=== PATIENT | male | born 1955 | race Caucasian/White ===

== ENCOUNTER 2025-06-01 20:42 | Emergency (ER) | payer MEDICARE, OTHER, SELFPAY ==
[2025-06-01 20:44] VITALS: BP 120/93
[2025-06-01 21:02] VITALS: BP 132/78
[2025-06-01 21:14] VITALS: BMI 26.8
[2025-06-01 21:33] LABS: Hematocrit 47.6 % (39.0-52.0); Hemoglobin 16.4 g/dL (13.0-18.0); Mean Corp Hgb Conc. 34.5 g/dL (33.0-37.0); Mean Corpuscular Volume 89.6 fL (80.0-94.0); Nucleated Red Blood Cells % 0 % (-); Platelet Count 267 10^3/uL (130-400); Red Cell Dist. Width 12.9 % (11.5-14.5)
[2025-06-01 21:46] LABS: COVID-19 Antigen Negative (Negative)
[2025-06-01 21:48] LABS: ALT (SGPT) 21 U/L (0-50); AST (SGOT) 21 U/L (17-59); Albumin 5.1 g/dl (3.5-5.0); Alkaline Phosphatase 91 U/L (38-126); Blood Urea Nitrogen 39 mg/dl (9-20); Calcium 10.1 mg/dl (8.4-10.2); Carbon Dioxide 24 mmol/L (22-30); Chloride 108 mmol/L (98-107); Estimated Creatinine Clearance 48 ml/min; Glucose 149 mg/dl (70-99); Potassium 4.5 mmol/L (3.5-5.1); Sodium 142 mmol/L (135-145); Total Protein 8.4 g/dl (6.3-8.2); eGFR 49.47
[2025-06-01] MEDS: ZOFRAN 4 MG IV (22:41)
[2025-06-01] MEDS: NSS 1000 IV (22:42)
--- NOTE | 2025-06-01 23:17 | ED.GENMED ---
History of Present Illness
General
Chief Complaint: Abdominal Symptoms
Time Seen by Provider: 06/01/25 21:07
History of Present Illness
History of Present Illness:
69-year-old male with history of A-fib presents to the emergency department for evaluation of loose/watery diarrhea for the past 3 days. Reports fatigue and weakness as well as vomiting today that prompted him to come to the emergency department.
He denies fevers or chills, denies abdominal pain. Denies any recent suspicious food intake. No ill contacts at home. No recent international travel. Denies any antibiotics in the past 90 days
Past History
Past History
ED Past Medical History: Arrthythmia (Atrial fib) and HTN
ED Past Surgical History: None
Social History
Tobacco: Non-smoker
Alcohol: Occasional
Drug: None
Personal: Other (Seperated)
Living: with family
Review of Systems
Review of Systems
Allergies reviewed?: Yes
All Other Systems: ROS reviewed and negative except as documented in HPI and ROS
Phy Exam
Physical Exam
Physical Exam:
GEN: Well appearing, NAD, WDWN
HEENT: Oral mucosa moist, no scleral icterus
Cardiac: Regular rate
Lung: No respiratory distress, no tachypnea
Abdomen: Soft, grossly nontender
MSK: No gross deformity or injuries
Skin: Good color, no pallor or jaundice, no rashes
Neuro: AO x3, moves all extremities freely
Psych: Calm, cooperative
Course
Orders/Labs/Results
Orders:
Orders
06/01/25 21:24
COVID-19 Antigen Urgent
Source: Nasal Swab
Complete Blood Count/With Diff Urgent
Comprehensive Metabolic Panel Urgent
Influenza A+B Rapid Molecular Urgent
ELIZABETH Source: Nasal Swab
Specimen Description:
06/01/25 22:13
0.9% Sodium Chloride 1000 ml [Nss] 1,000 ml IV BOLUS
Ondansetron Injectable [Zofran] 4 mg IV NOW STA
06/01/25 23:19
0.9% Sodium Chloride 500 ml [Nss] 500 ml IV BOLUS
Abnormal Lab Results
06/01/25
21:24
Absolute Monos (auto) 1.2 H 10^3/uL
(0.1-0.6)
Lymphocytes % 18.6 L %
(20.5-51.1)
Monocytes % 12.8 H %
(1.7-9.3)
Chloride 108 H mmol/L
(98-107)
BUN 39 H mg/dl
(9-20)
Creatinine 1.5 H mg/dL
(0.7-1.3)
Glucose 149 H mg/dl
(70-99)
Total Bilirubin 1.4 H mg/dl
(0.2-1.3)
Total Protein 8.4 H g/dl
(6.3-8.2)
Albumin 5.1 H g/dl
(3.5-5.0)
06/01/25 21:24
06/01/25 21:24
Vital Signs
Initial and Last Documented VS:
Initial Vital Signs
Temp Pulse Resp BP Pulse Ox
98.8 F 86 20 120/93 99
06/01/25 20:44 06/01/25 20:44 06/01/25 20:44 06/01/25 20:44 06/01/25 20:44
Last Documented Vital Signs
Temp Pulse Resp BP Pulse Ox
98.8 F 61 17 132/78 97
06/01/25 20:44 06/01/25 21:02 06/01/25 21:02 06/01/25 21:02 06/01/25 23:19
MDM/Problems Addressed
MDM/Problems Addressed:
Likely self-limited viral diarrhea versus foodborne gastroenteritis. Patient is clinically well, labs suspicious for mild dehydration. Will rehydrate, send with outpatient stool collection ordered should symptoms worsen.
*Pulse Oximetry
SaO2: 97
Oxygen Mode of Delivery: Room air
Patient hypoxic: no
*Critical Care Note
Total Time (30-74mins, 75-104mins- exclusive of procedures): Not Applicable
ED Attending Note
-
Portions of this chart may have been created with voice recognition software.� Occasional wrong word or��sound alike� substitutions may have occurred due to the inherent limitations of voice recognition software.
Discharge Plan
Departure
Patient with high blood pressure during this ER visit?: No
Discharge Problem:
Gastroenteritis
Instructions: Diarrhea in teens and adults
Prescriptions:
New
ondansetron 4 mg tablet,disintegrating
4 mg PO TIDPRN PRN (Reason: nausea/vomiting) Qty: 10 0RF
No Action
metronidazole 500 MG tablet
500 mg PO Q8 Qty: 0 0RF
amlodipine 10 MG tablet
10 mg PO DAILY Qty: 30 0RF
pantoprazole 40 MG tablet,delayed release (DR/EC)
40 mg PO DAILY Qty: 30 0RF
levofloxacin 500 MG tablet
750 mg PO DAILY Qty: 7 0RF
colchicine 0.6 MG tablet
0.6 mg PO DAILY Qty: 30 0RF
guaifenesin [Mucus Relief ER] 600 MG tablet extended release 12hr
1,200 mg PO Q12 Qty: 60 0RF
prednisone 10 MG tablet
10 mg PO .TAPER Qty: 30 0RF
Rx Instructions:
Take 40mg daily x3days, 30mg daily x3days, 20mg daily x3days, 10mg daily x3days.
triamcinolone acetonide 1 APPLIC ointment
1 applic topical TID Qty: 1 0RF
Referrals:
Gloria Bojorquez MD [Family Provider, Family Practice]
Activity Restrictions/Additional Instructions:
Obtain stool studies if diarrhea continues to worsen over the next 3 to 5 days
Interventions
Interventions:
*Risk Screen - Suicide Last Done: 06/01/25 21:15
*General Assessment Last Done: 06/01/25 20:44
*Neglect/Abuse Screening Last Done: 06/01/25 21:15
*ED- Fall Risk Assessment Last Done: 06/01/25 21:15
*ED COVID-19 Vaccine History Last Done: 06/01/25 21:15
*ED Influenza Vaccine History Last Done: 06/01/25 21:15
EM-Rmynqu-Coxxrwmjjs Assessment Last Done: 06/01/25 21:15
Discharge Date and Time
Print Language: IRISH
[2025-06-01] MEDS: NSS 500 IV (23:41)
[2025-06-02 00:11] VITALS: BP 125/76
[2025-06-02 00:25] VITALS: BP 125/76
== END 2025-06-02 00:25 | disposition home or self-care (01) ==
LOC: EMR 20:42
PROVIDERS: Physician Assistant; EMERGENCY PHYSICIAN Student in an Organized Health Care Education/Training Program; FAMILY PHYSICIAN Family Medicine
DX: K52.9 Noninfective gastroenteritis and colitis, unspecified (principal); I10 Essential (primary) hypertension; I48.91 Unspecified atrial fibrillation
CPT/HCPCS: 99284; 96374; 96361 ×2; 80053; 85025; 87502; 87811

== ENCOUNTER → 2025-06-05 12:46 | Outpatient (REF) | payer MEDICARE, OTHER, SELFPAY | LOC: REG 12:46 | PROVIDERS: ATTENDING PHYSICIAN Physician Assistant | DX: R19.7 Diarrhea, unspecified (principal) | CPT/HCPCS: 87045; 87046; 87427 ==

== ENCOUNTER 2025-06-15 06:27 | Inpatient (IN) | payer MEDICARE, OTHER, SELFPAY ==
[2025-06-14 21:46] VITALS: BP 119/75
[2025-06-14 22:18] LABS: Hematocrit 46.4 % (39.0-52.0); Hemoglobin 15.3 g/dL (13.0-18.0); Mean Corp Hgb Conc. 33.0 g/dL (33.0-37.0); Mean Corpuscular Volume 89.4 fL (80.0-94.0); Platelet Count 267 10^3/uL (130-400); Red Cell Dist. Width 12.7 % (11.5-14.5)
[2025-06-14 22:20] LABS: ALT (SGPT) 20 U/L (0-50); AST (SGOT) 19 U/L (17-59); Albumin 4.6 g/dl (3.5-5.0); Alkaline Phosphatase 81 U/L (38-126); Blood Urea Nitrogen 44 mg/dl (9-20); Calcium 9.7 mg/dl (8.4-10.2); Carbon Dioxide 22 mmol/L (22-30); Chloride 104 mmol/L (98-107); Glucose 162 mg/dl (70-99); Potassium 4.3 mmol/L (3.5-5.1); Sodium 137 mmol/L (135-145); Total Protein 7.9 g/dl (6.3-8.2); eGFR 45.78
[2025-06-14 22:41] LABS: Absolute Neutrophils -Man Diff 2.8 10^3/uL (1.4-6.5); Normal RBC Morphology Yes; Platelets Checked Yes; Total Cells Counted 100
[2025-06-14 23:18] VITALS: BP 107/67
[2025-06-14 23:37] VITALS: BMI 26.9
[2025-06-15] VITALS (18 sets, daily range): BP systolic 90–135; BP diastolic 42–78; BMI 26.9; BMI 27.1
--- NOTE | 2025-06-15 00:26 | ED.GENMED ---
History of Present Illness
General
Chief Complaint: Abdominal Symptoms
Source: patient, records and spouse
Exam Limitations: none
Time Seen by Provider: 06/14/25 23:28
Nursing documentation reviewed up to this point in time: agreed with
History of Present Illness
History of Present Illness:
69-year-old male with a past medical history of hypertension, atrial fibrillation who presents to the emergency department with his for evaluation of persistent abdominal bloating and diarrhea this time with vomiting. Patient was seen in the
emergency room 06/01 for diarrhea that was thought to be related to a virus. He was given some fluids and discharged home with supportive care. He says that for the next day or 2 his diarrhea actually seem to improve but then it quickly worsened
and he has had persistent diarrhea since. He says he is having increased abdominal bloating and flatulence as well as belching. He says that he has had somewhat poor appetite. Today he started having vomiting associated with this which ultimately
prompted him to return to the ER. He has not had a fever. He has not had any recent travel. No recent antibiotics. He does make note however that his cat was recently taken to the vet and they found that it was a carrier for Giardia and he is
unsure if this is of clinical significance.
Past History
Past History
ED Past Medical History: Arrthythmia (Atrial fib) and HTN
ED Past Surgical History: None
Social History
Tobacco: Non-smoker
Alcohol: Occasional
Drug: None
Personal: Other (Seperated)
Living: with family
Review of Systems
Review of Systems
All Other Systems: ROS reviewed and negative except as documented in HPI and ROS
Constitutional: Reports fatigue; Denies fever or chills
Respiratory: Denies trouble breathing
Cardiac: Denies chest pain
ABD/GI: Reports nausea, vomiting and diarrhea; Denies abdominal pain or bloody stools
: Denies flank pain
Musculoskeletal: Denies neck pain or back pain
Neurological: Denies dizzy or headache
Phy Exam
Physical Exam
Physical Exam:
General: Awake, alert, oriented x3; no acute distress
Head: Normocephalic, atraumatic
Eyes: Conjunctiva normal, sclera anicteric
Throat: Airway intact, dry mucous membranes
Neck: Trachea midline, supple without meningismus
Lungs: Clear to auscultation bilaterally, no wheezing, rales, rhonchi
Heart: Regular rate and rhythm, no murmurs, gallops, or rubs
Abd: Soft, non distended, nontender
Neuro: Grossly intact
Skin: Warm and dry
Extremities: Warm and well-perfused
Scores
Heart Failure Risk
Heart Failure Risk Score: Not Applicable
Heart Score for Chest Pain Patients
STEMI patient?: Not applicable
Withdrawal Assessment of Alcohol
Withdrawal Assessment Completed?: Not applicable
Course
Orders/Labs/Results
Orders:
Orders
06/14/25 21:55
CMP [Comprehensive Metabolic Panel] Urgent
Complete Blood Count/With Diff Urgent
Manual Differential Urgent
06/14/25 23:29
STOOL [C difficile Antigen & Toxins] Urgent
ELIZABETH Source: Feces/Stool
Specimen Description:
Stool Culture Urgent
ELIZABETH Source: Feces/Stool
Specimen Description:
06/14/25 23:30
0.9% Sodium Chloride 1000 ml [Nss] 1,000 ml IV BOLUS
06/15/25 00:03
CT Abd/pelvis W Iv Cont Urgent
Comment:
Reason For Exam: abd bloating, diarrhea, vomiting
Abnormal Lab Results
06/14/25
21:55
Segmented Neutrophils 39 L %
(42-75)
Band Neutrophils 8 H %
(0-3)
Monocytes (Manual) 26 H %
(2-9)
BUN 44 H mg/dl
(9-20)
Creatinine 1.6 H mg/dL
(0.7-1.3)
Glucose 162 H mg/dl
(70-99)
Total Bilirubin 1.7 H mg/dl
(0.2-1.3)
06/14/25 21:55
06/14/25 21:55
Vital Signs
Initial and Last Documented VS:
Initial Vital Signs
Temp Pulse Resp BP Pulse Ox
36.6 C 97 18 119/75 98
06/14/25 21:46 06/14/25 21:46 06/14/25 21:46 06/14/25 21:46 06/14/25 21:46
Last Documented Vital Signs
Temp Pulse Resp BP Pulse Ox
36.6 C 97 18 107/67 98
06/14/25 21:46 06/14/25 21:46 06/14/25 21:46 06/14/25 23:18 06/15/25 00:31
MDM/Problems Addressed
Differential Diagnosis Includes:
Viral gastroenteritis, bacterial enteritis/colitis, parasite including Giardia a consideration; diverticulitis, appendicitis considered very unlikely clinically
MDM/Problems Addressed:
69-year-old male presents for evaluation of persistent diarrhea and abdominal bloating now associated with some vomiting this evening. Vitals and exam as above. Labs were sent in triage including a CBC which showed bandemia but no leukocytosis.
Chemistry shows ANURAG with a creatinine of 1.6 likely prerenal from GI losses. Will plan to send stool studies if and when patient produces sample. Provide IV fluid resuscitation. Will check CT abdomen. Reassess at the above.
CT reviewed: No acute abnormalities identified. Clinical reassessment heart rate remains in the 90s. Normotensive. I had a long discussion with the patient he feels his symptoms are not improving given prolonged nature and persistent ANURAG will
plan to admit for continued fluids, follow-up stool cultures. Hold on antibiotics for now. Discussed with hospitalist for admission.
*Radiology
Radiology exam reviewed: radiology read reviewed
*Pulse Oximetry
SaO2: 98
Oxygen Mode of Delivery: Room air
Patient hypoxic: no (98%)
*Critical Care Note
Total Time (30-74mins, 75-104mins- exclusive of procedures): Not Applicable
Data Reviewed
Review of Other/Old Records Reveals: Labs and Records
Source: patient, records and spouse
Patient Management
Discussion with other providers: Hospitalist (Discussed with hospitalist)
Escalation/DeEscalation of care consider admission/obs:
Admission indicated
ED Attending Note
-
Portions of this chart may have been created with voice recognition software.� Occasional wrong word or��sound alike� substitutions may have occurred due to the inherent limitations of voice recognition software.
Discharge Plan
Departure
Discharge Problem:
Diarrhea, ANURAG (acute kidney injury), Dehydration
Prescriptions:
No Action
metronidazole 500 MG tablet
500 mg PO Q8 Qty: 0 0RF
amlodipine 10 MG tablet
10 mg PO DAILY Qty: 30 0RF
pantoprazole 40 MG tablet,delayed release (DR/EC)
40 mg PO DAILY Qty: 30 0RF
levofloxacin 500 MG tablet
750 mg PO DAILY Qty: 7 0RF
colchicine 0.6 MG tablet
0.6 mg PO DAILY Qty: 30 0RF
guaifenesin [Mucus Relief ER] 600 MG tablet extended release 12hr
1,200 mg PO Q12 Qty: 60 0RF
prednisone 10 MG tablet
10 mg PO .TAPER Qty: 30 0RF
Rx Instructions:
Take 40mg daily x3days, 30mg daily x3days, 20mg daily x3days, 10mg daily x3days.
triamcinolone acetonide 1 APPLIC ointment
1 applic topical TID Qty: 1 0RF
ondansetron 4 mg tablet,disintegrating
4 mg PO TIDPRN PRN (Reason: nausea/vomiting) Qty: 10 0RF
Referrals:
Gloria Bojorquez MD [Family Provider, Family Practice]
Interventions
Interventions:
*Risk Screen - Suicide Last Done: 06/14/25 21:46
*General Assessment Last Done: 06/14/25 21:46
*Neglect/Abuse Screening Last Done: 06/14/25 21:46
*ED- Fall Risk Assessment Last Done: 06/14/25 21:46
*ED COVID-19 Vaccine History Last Done: 06/14/25 21:46
*ED Influenza Vaccine History Last Done: 06/14/25 21:46
OY-Tuumyf-Mwcdrxbudq Assessment Last Done: 06/14/25 23:37
Discharge Date and Time
Print Language: HEBREW
[2025-06-15] MEDS: NSS 1000 IV ×4 (02:15→21:20)
--- NOTE | 2025-06-15 05:22 | HPS.HSE ---
Family Physician
-
Family Physician: Gloria Bojorquez MD
Chief Complaint
-
N/V/D
History of Present Illness
Patient is a 69y M with PMH significant for A-Fib, hypertension and DM-II who presents to ED complaining of N/V/D x 2 weeks. Patient has been seen in the ED on 06/01, 06/05 and this evening with similar complaints. He denies any recent travel or
known sick contacts. He states that he may have eaten some under-cooked chicken prior to onset of his symptoms. He reports N/V/D with about 3-4 watery, foul-smelling stools per day. He has had poor appetite and progressively increasing fatigue
over the past 2 weeks. No abdominal pain. No fevers / chills.
Patient denies any new medications.
Medical History
Past Medical History
Past Medical History: Reports Other
Additional Past Medical History:
Persistent A-Fib
Hypertension
DM-II
Past Surgical History: Reports None
Social History
Tobacco: Non-smoker
Alcohol: Occasional
Drug: None
Family History
Family History: Not pertinent
Allergies / Home Medications
Allergies reflects when Allergies were last updated in [facility].
Home Medications with original date entered in [facility]
Allergy/Medication List:
Patient does not know his current medications.
Takes Xarelto but unsure of dose. Takes ' a heart medicine'.
Review of Systems
-
History Source: Patient
A 12 point ROS was completed and negative except as noted: Yes
Constitutional: Reports Fatigue; Denies Fever or Chills
Respiratory: Denies Cough or Trouble Breathing
Cardiac: Denies Chest Pain or Palpitations
Abdomen/GI: Reports Nausea, Vomiting, Diarrhea and Anorexia; Denies Abdominal Pain, Bloody Stools or Black Stools
: Denies Dysuria or Frequency
Musculoskeletal: Denies Joint Pain or Edema
Neurological: Reports Weakness; Denies Dizzy or Headache
Physical Exam
Vital Signs
Vital Signs
Temp Pulse Resp BP Pulse Ox
97.8 F 77 18 102/49 95
06/14/25 21:46 06/15/25 04:46 06/15/25 04:46 06/15/25 04:00 06/15/25 04:30
Physical Exam
General: Other (69y M in no acute distress.)
HEENT: Moist mucous membranes and PERRLA
Respiratory: Clear; No Wheezes, Rales or Rhonchi
Cardiac: S1/S2 and Irregular Rhythm; No Murmur
GI: Soft, Non Tender, Non Distended and Normal Bowel Sounds
Musculoskeletal: No Clubbing, No Cyanosis and No Edema
Neuro: AO x 3
Laboratory Results
-
06/14/25 21:55
06/14/25 21:55
Laboratory Results
Total Bilirubin 1.7 mg/dl (0.2-1.3) H 06/14/25 21:55
AST 19 U/L (17-59) 06/14/25 21:55
ALT 20 U/L (0-50) 06/14/25 21:55
Alkaline Phosphatase 81 U/L (38-126) 06/14/25 21:55
Impression/Plan
-
A/P: Patient is a 69y M with PMH significant for A-Fib, HTN and DM-II who presents to ED complaining of N/V/D x 2 weeks.
Gastroenteritis
- Admit for further evaluation and treatment.
- Persistent symptoms x 2 weeks. Stool cultures sent on 06/05 were negative. Repeat sent again today.
- Doubt CDiff with no significant risk factors, significant leukocytosis, etc.
- Check norovirus.
- Continue supportive care with antiemetics, IVFs, etc.
- Follow for clinical improvement.
Renal Insufficiency
- ANURAG v CKD.
- SCr = 1.6 compared to prior baseline of 0.9, but that was 10 years ago.
- ? acute due to GI / volume losses (seems likely) versus CKD.
- IVFs overnight.
- Follow for changes in SCr over the next 48 hours.
Permanent Atrial Fibrillation
Benign Hypertension
- Stable. Continue Xarelto.
- Need to verify other medications and resume in AM if appropriate.
DM-II
- Listed history of DM.
- Follow glucose and cover with SSI if needed.
- Check A1C.
DVT Prophylaxis: On Xarelto.
Code Status: Full
[2025-06-15 06:34] LABS: Hematocrit 37.3 % (39.0-52.0); Hemoglobin 12.7 g/dL (13.0-18.0); Mean Corp Hgb Conc. 34.0 g/dL (33.0-37.0); Mean Corpuscular Volume 86.9 fL (80.0-94.0); Platelet Count 200 10^3/uL (130-400); Red Cell Dist. Width 13.0 % (11.5-14.5)
[2025-06-15 06:49] LABS: Blood Urea Nitrogen 33 mg/dl (9-20); Calcium 8.6 mg/dl (8.4-10.2); Carbon Dioxide 20 mmol/L (22-30); Chloride 110 mmol/L (98-107); Estimated Creatinine Clearance 60 ml/min; Glucose 100 mg/dl (70-99); Magnesium 1.7 mg/dl (1.6-2.3); Potassium 3.9 mmol/L (3.5-5.1); Sodium 137 mmol/L (135-145); eGFR > 60.00
[2025-06-15 09:04] LABS: Troponin I 0.012 ng/ml
[2025-06-15 10:02] LABS: Glycohemoglobin (HgbA1c) 5.9 % (4.0-5.6)
[2025-06-15 13:13] LABS: Glucose - Point of Care 83 mg/dl (70-99)
[2025-06-15 18:22] LABS: Glucose - Point of Care 102 mg/dl (70-99)
[2025-06-15] MEDS: XARELTO 20 MG PO (19:13)
--- NOTE | 2025-06-15 20:43 | PTCARENOTE ---
Received patient from ED. Patient AAOx3, a little unsteady first geting up on feet. Patient assessed. VSS. Patient verbalized an understanding to ring for transfers. Call herrera in reach. Bed alarm placed for safety.
[2025-06-15 21:28] LABS: Glucose - Point of Care 97 mg/dl (70-99)
[2025-06-16] MEDS: NSS 1000 IV (06:24)
[2025-06-16 07:35] VITALS: BP 131/76
[2025-06-16 08:35] LABS: Glucose - Point of Care 114 mg/dl (70-99)
[2025-06-16 08:35] LABS: Glucose - Point of Care 111 mg/dl (70-99)
[2025-06-16 12:53] LABS: Glucose - Point of Care 155 mg/dl (70-99)
[2025-06-16 12:58] LABS: Hematocrit 39.6 % (39.0-52.0); Hemoglobin 13.3 g/dL (13.0-18.0); Mean Corp Hgb Conc. 33.6 g/dL (33.0-37.0); Mean Corpuscular Volume 91.0 fL (80.0-94.0); Platelet Count 182 10^3/uL (130-400); Red Cell Dist. Width 12.6 % (11.5-14.5)
[2025-06-16 13:12] LABS: Blood Urea Nitrogen 11 mg/dl (9-20); Calcium 8.7 mg/dl (8.4-10.2); Carbon Dioxide 24 mmol/L (22-30); Chloride 107 mmol/L (98-107); Estimated Creatinine Clearance 80 ml/min; Glucose 172 mg/dl (70-99); Potassium 3.8 mmol/L (3.5-5.1); Sodium 137 mmol/L (135-145); eGFR > 60.00
--- NOTE | 2025-06-16 13:30 | W.DCSUMMARY ---
Discharge Summary
Discharge Data
Date of Admission: 06/15/25
Date of Discharge: 06/16/25
-
Pending Results: No
Hospital Course
Discharging Physician : Dr Rony Blanca
Disposition : To home
Primary care physician : Dr Gloria Bojorquez
Principal Discharge diagnosis :
Viral gastroenteritis
Metabolic acidosis
Chronic Discharge diagnosis :
Essential hypertension
Hyperlipidemia
Persistent atrial fibrillation on Xarelto
Physical examination:
HEENT: NC/AT
Chest: Clear to auscultation
Heart: N s1/s2, RRR
Abd: N BS, soft, nontender, nondistended, no organomegaly
Neuro: No motor or sensory deficits,
Ext: No edema
Hospital Course :
Patient is 69-year-old with admission past medical history came to ER with new onset of nausea and vomiting and diarrhea for 2 weeks. Patient was seen in ER on June 01 and for similar complaints. Patient was discharged home after initial
testing. Patient came back with persistence of symptoms. A CT abdomen pelvis done in ER was negative for acute abnormality. Patient was elevated metabolic acidosis secondary to ongoing diarrhea. Patient was tested for, and stool organism
including C. difficile and norovirus and were negative. Patient was maintained on IV fluid and symptomatic care. Patient had improvement in symptoms in 48hrs. patient was discharged home at this point the patient provided number for GI office to
follow-up if continues to have recurrent symptoms
Important imaging findings :
None
Procedure findings :
None
Discharge Plan
-
Patient Disposition: Home (Routine Discharge)
Discharge Diagnosis/Procedures: Viral gastro-enteritis
Condition: Fair
Diet: Regular
Additional Diets: Try Gluten free diet if have recurrent diarrhea
Activity: As tolerated
Driving Restrictions: No driving
Bathing Restrictions: OK to Shower
Referrals:
Alex Morris MD [Active, Gastroenterology]
Referral Note: Call for an appointment if continue to have problem with recurrent diarrhea/nausea/vomiting
Gloria Bojorquez MD [Family Provider, [facility]] - in one week
Prescriptions:
New
ondansetron 4 mg tablet,disintegrating
4 mg PO Q8H PRN (Reason: nausea and vomiting) 3 Days Qty: 10 0RF
Continued
amlodipine 10 MG tablet
10 mg PO DAILY Qty: 30 0RF
Multivitamin
1 tab PO DAILY
atorvastatin 10 mg Tablet
10 mg PO DAILY
Xarelto 20 mg Tablet
20 mg PO DAILY
Discharge Orders:
Discharge Patient (As Directed); Ordered 06/16/25
Ordered By: Rony Blanca
Discharge Date and Time
Print Language: QATARI
--- NOTE | 2025-06-16 13:32 | CM ---
CM met with pt bedside
Pt resides in a 2SH with 2STE and full flight to 2nd floor
Pt is independent without any ADs, drives+
Has a cpap at home
Rx through [facility]
PCP- Armida at [facility]- saw he rlast week, last name unknown
Rx- [facility]
IMM verbally reviewed- copy provided
DC order noted- no dc needs noted
Offered VN to patient due to weakness, he declined
He plans to drive self home
Discharge Disposition- home, no needs, drive self home
[2025-06-16 13:54] LABS: Glucose - Point of Care 122 mg/dl (70-99)
[2025-06-16 14:17] VITALS: BP 130/76; PULSE 77
--- NOTE | 2025-06-16 14:27 | PTOTSP ---
Pt is able to don his sneakers independently but c/o intermittent right heel/ankle pain that is not new. He limps around the room. Pt did trial a walker and was steadier, but refused it for discharge. RN aware. PT will sign off.
[2025-06-16 14:45] VITALS: BP 136/78
== END 2025-06-16 14:45 | disposition home or self-care (01) | DRG 392 ==
LOC: 2 NORTH 06:27
PROVIDERS: ADMITTING PHYSICIAN Hospitalist; ATTENDING PHYSICIAN Hospitalist; EMERGENCY PHYSICIAN Emergency Medicine; FAMILY PHYSICIAN Family Medicine
DX: K52.9 Noninfective gastroenteritis and colitis, unspecified (principal); E87.20 Acidosis, unspecified; I48.21 Permanent atrial fibrillation; N17.9 Acute kidney failure, unspecified; I12.9 Hypertensive chronic kidney disease with stage 1 through stage 4 chronic kidney disease, or unspecified chronic kidney disease; N18.9 Chronic kidney disease, unspecified; E11.22 Type 2 diabetes mellitus with diabetic chronic kidney disease; Z79.01 Long term (current) use of anticoagulants
CPT/HCPCS: 74177; 80048; 80053; 82962; 83036; 83735; 84484; 85025; 85027; 87045; 87046; 87070; 87324; 87328; 87329; 87427; 87449; 87798; 93005; 97162; Q9967